=== PATIENT | female | born 1975 | race Caucasian/White ===

== ENCOUNTER → 2023-01-16 | Outpatient (CLI) | payer OTHER | LOC: PLD 10:28 → LAB SHORT 10:28 | DX: D48.5 Neoplasm of uncertain behavior of skin (principal) | CPT/HCPCS: 88305 ==

== ENCOUNTER 2024-07-16 05:49 | Day surgery (SDC) | payer OTHER ==
[2024-07-15 07:50] LABS: BASOPHILS ABSOLUTE AUTO 0.04 K/mm3 (0.00-0.23); BASOPHILS PERCENT AUTO 1 % (0-2); EOSINOPHILS PERCENT AUTO 6 % (0-6); Hematocrit 42.1 % (33.0-51.0); Hemoglobin 13.9 g/dL (11.5-16.0); IMMATURE GRAN ABSOLUTE AUTO 0.02 K/mm3 (0.00-0.10); IMMATURE GRAN PERCENT AUTO 0 % (0-1); LYMPHOCYTES ABSOLUTE AUTO 2.16 K/mm3 (0.84-5.20); LYMPHOCYTES PERCENT AUTO 30 % (21-46); MONOCYTES ABSOLUTE AUTO 0.72 K/mm3 (0.16-1.47); MONOCYTES PERCENT AUTO 10 % (4-13); Mean Corpuscular HGB 31.7 pg (26.0-34.0); Mean Corpuscular Volume 96 fL (80-100); Mean Platelet Volume 9.7 fL (9.1-12.4); NEUTROPHILS ABSOLUTE AUTO 3.99 K/mm3 (1.96-9.15); NEUTROPHILS PERCENT AUTO 54 % (41-73); Platelet Count 262 K/mm3 (150-400); RDW Coefficient Variation 12.8 % (11.7-14.2); RDW Standard Deviation 45.1 fL (35.1-46.3); Red Blood Cell Count 4.39 M/mm3 (3.80-5.20); White Blood Cell Count 7.33 K/mm3 (4.00-11.30)
[~2024-07-16] VITALS: Ht 144.8 cm; Wt 85.2 kg
[2024-07-16] VITALS (18 sets, daily range): BP systolic 118–163; BP diastolic 70–104
[~2024-07-16 05:49] MED LIST: B12-FOLIC ACID1 EACH PO; ELINEST-28 TAB1 EACH PO; MAGCIT300; PROBIOTIC1 EA14; ZINC7.5 MG
[2024-07-16] MEDS ORDERED: Lactated Ringer's 1,000 ML IV SCH ×2 (06:10→09:05)
[2024-07-16] MEDS ORDERED: Clindamycin 600mg in D5W 50 ML IV SCH ×2 (06:10→13:00)
[2024-07-16] MEDS ORDERED: Gentamicin Sulfate 100 MG in NS 100 ML IV SCH (06:15)
[2024-07-16] MEDS ORDERED: Bupivacaine 0.5% Inj 50 ML Vial ONE (06:27)
[2024-07-16] MEDS ORDERED: Midazolam HCl 1MG / ML 2ML Vial ONE (06:47)
[2024-07-16] MEDS ORDERED: Midazolam HCl 1MG / ML 2ML Vial IV ONE (06:50)
--- NOTE | 2024-07-16 06:51 | NUR ---
History, Chart, Medications and Allergies reviewed before start of procedure. Pre-Op teaching done. Pt verbalizes understanding. Patient confirms NPO status and agrees with scheduled surgery. Patient reports completing Chlorhexadine shower X2 prior to admission to hospital. Lungs clear T/O to Auscultation.
[2024-07-16] MEDS ORDERED: propofoL 20 ML IV ONE (06:52)
[2024-07-16] MEDS ORDERED: FentaNYL Citrate 50 MCG/ML 2 ML Injection ONE ×2 (06:52→07:51)
[2024-07-16] MEDS ORDERED: Lidocaine HCl 2% 20 ML MDV ONE (06:53)
[2024-07-16] MEDS ORDERED: Rocuronium Bromide 10 MG/ML 5ML Injection IV ONE ×2 (06:53→07:36)
[2024-07-16] MEDS ORDERED: Dexamethasone Sod Phos 10 MG/ML 1ML VIAL ONE (07:12)
[2024-07-16] MEDS ORDERED: ePHEDrine Sulfate 50 MG/ML 1ML Injection ONE (07:32)
--- NOTE | 2024-07-16 07:43 | NUR ---
07/16/24 0743 Abena Marti PATIENT GIVEN GENTAMICIN 100MG BY ANESTHESIA INTRAOPERATIVELY AT 0716.
[2024-07-16] MEDS ORDERED: Ondansetron HCl 2 MG / ML 2ML Vial ONE (08:09)
[2024-07-16] MEDS ORDERED: Sugammadex Sodium 200 MG/2ML SDV (100 MG/ML) ONE (08:10)
[2024-07-16] MEDS ORDERED: Naloxone HCl 0.4MG / ML 1ML Vial IV PRN (09:05)
[2024-07-16] MEDS ORDERED: Simethicone 80 MG Chew PO PRN (09:05)
[2024-07-16] MEDS ORDERED: Ondansetron HCl 2 MG / ML 2ML Vial IV PRN (09:05)
[2024-07-16] MEDS ORDERED: OxyCODONE 5 mg/Acetamin 325 mg TABLET PO PRN (09:10)
[2024-07-16] MEDS ORDERED: HYDROmorphone HCl/Pf 1MG SYR IV PRN (09:10)
[2024-07-16] MEDS ORDERED: Ondansetron 4 MG TAB PO PRN (09:10)
[2024-07-16] MEDS ORDERED: Promethazine HCl 12.5 MG Supp PR PRN (09:10)
[2024-07-16] MEDS ORDERED: Promethazine HCl 25 MG Tab PO PRN (09:10)
[2024-07-16] MEDS ORDERED: FLU VACC TS2024-25(6MOS UP)/PF 45 MCG/0.5 ML SYRINGE IM SCH (09:10)
[2024-07-16] MEDS ORDERED: Ketorolac Tromethamine 30mg Vial IV PRN (09:40)
--- NOTE | 2024-07-16 11:29 | NUR ---
PT TO ROOM 224 FROM PACU. PT TRANSFERED FROM [facility] [place] [facility] TO BED W/ SLIDE SHEET, DENIES PAIN/NAUSEA. VSS. INCISIONS C/D/I, NO BLEEDING PRESENT ON MARISA PAD. PT DROWSY BUT FOLLOWS COMMANDS. EDUCATED PT OFFICE SECRETARY LIGHT.
[2024-07-16] MEDS ORDERED: MetroNIDAZOLE 500MG/NS 100 ml 100 ML IV SCH (12:00)
--- NOTE | 2024-07-16 17:20 | NUR ---
SHIFT SUMMARY PT IS POD0 FOR SLOANE LAP HYSTER. DRESSINGS C/D/I. SCANT VAG BLEEDING PRESENT ON MARISA PAD. PT IND/SBA TO BR, VOIDING APPROPRIATELY. DENIES PASSING FLATUS, ENCOURAGED PT TO AMBULATE. VSS. PAIN MANAGED W/ IV AND PO PAIN MEDS PER EMAR. PT TOLERATING PO REG DIET AND FLUIDS. SALINE LOCKED. IV ABX GIVEN PER EMAR. CALL LIGHT IN REACH. PLAN TO D/C TOMORROW.
[2024-07-17 04:48] VITALS: BP 107/58
--- NOTE | 2024-07-17 04:53 | NUR ---
SHIFT SUMMARY PT IS A&O X4, ABLE TO MAKE NEEDS KNOWN. SHE IS POD 1 FROM LAP HYSTERECTOMY. 4 LAP SITES APPEAR WNL, DRESSINGS C/D/I. PAIN MEDICATED PER EMAR. PT IS INDEPENDENT IN ROOM. SHE IS TOLERATING ORAL INTAKE WELL. VOIDING APPROPRIATELY, SHE REPORTS THAT DYSURIA HAS RESOLVED SINCE HAVING HER ROBERTS REMOVED. VSS, AFEBRILE. PT IS RESTING IN BED, BREATHING IS EVEN AND UNLABORED, CALL LIGHT IN REACH.
[2024-07-17 05:27] LABS: BASOPHILS ABSOLUTE AUTO 0.01 K/mm3 (0.00-0.23); BASOPHILS PERCENT AUTO 0 % (0-2); EOSINOPHILS ABSOLUTE AUTO 0.01 K/mm3 (0.00-0.68); EOSINOPHILS PERCENT AUTO 0 % (0-6); Hematocrit 41.8 % (33.0-51.0); Hemoglobin 13.8 g/dL (11.5-16.0); IMMATURE GRAN ABSOLUTE AUTO 0.08 K/mm3 (0.00-0.10); IMMATURE GRAN PERCENT AUTO 1 % (0-1); LYMPHOCYTES ABSOLUTE AUTO 1.69 K/mm3 (0.84-5.20); LYMPHOCYTES PERCENT AUTO 13 % (21-46); MONOCYTES ABSOLUTE AUTO 1.14 K/mm3 (0.16-1.47); MONOCYTES PERCENT AUTO 9 % (4-13); Mean Corpuscular HGB 32.2 pg (26.0-34.0); Mean Corpuscular Volume 97 fL (80-100); NEUTROPHILS ABSOLUTE AUTO 9.71 K/mm3 (1.96-9.15); NEUTROPHILS PERCENT AUTO 77 % (41-73); Platelet Count 247 K/mm3 (150-400); RDW Coefficient Variation 13.1 % (11.7-14.2); RDW Standard Deviation 46.8 fL (35.1-46.3); Red Blood Cell Count 4.29 M/mm3 (3.80-5.20); White Blood Cell Count 12.64 K/mm3 (4.00-11.30)
[2024-07-17 07:15] VITALS: BP 133/71
[2024-07-17] MEDS ORDERED: Estradiol 1 MG Tab PO SCH (09:00)
[2024-07-17] MEDS ORDERED: Percocet 5-3251 EACH PO (12:14)
[2024-07-17] MEDS ORDERED: ESTR2 PO (12:15)
[2024-07-17] MEDS ORDERED: PROM25 PO (12:15)
[2024-07-17] MEDS ORDERED: SIME80CH PO (12:15)
--- NOTE | 2024-07-17 14:23 | NUR ---
DISCHARGE NOTE PT TOLERATING REG DIET AND FLUIDS, VOIDING, IND IN ROOM, AMBULATING HALLWAYS. SCANT VAG BLEEDING. PAIN MANAGED W/ PO PAIN MEDS. PT DC'D VIA WC TO PRIVATE RIDE HOME W/ BELONGINGS AND DC INSTRUCTIONS.
== END 2024-07-17 14:24 | disposition home or self-care (01) ==
LOC: ORSCMMR 05:49 → ORD 07:00 → ORSCMMR 07:00 → SURS 09:33 → ORSCMMR 07-17 14:24
PROVIDERS: Obstetrics & Gynecology
DX: N80.03 Adenomyosis of the uterus (principal); N92.0 Excessive and frequent menstruation with regular cycle; N80.359 Endometriosis of pelvic sidewall, unspecified side, unspecified depth; D25.9 Leiomyoma of uterus, unspecified; N83.292 Other ovarian cyst, left side; N83.291 Other ovarian cyst, right side; N94.6 Dysmenorrhea, unspecified; E66.01 Morbid (severe) obesity due to excess calories; Z68.41 Body mass index [BMI] 40.0-44.9, adult; F41.9 Anxiety disorder, unspecified; Z79.899 Other long term (current) drug therapy
CPT/HCPCS: 36415; 85025; 86850; 86900; 86901; 88307; 94762; A9270; J1100; J1580; J1885; J2250; J2405; J2704; J3010; J7120